=== PATIENT | male | born 1980 | race Two or more races ===

== ENCOUNTER 2024-01-26 20:03 | Inpatient (IN) | payer MEDICAID, SELFPAY ==
--- NOTE | ~2024-01-26 | CT_ITS ---
EXAMINATION: CT HEAD WITHOUT CONTRAST CT CERVICAL SPINE WITHOUT CONTRAST CLINICAL INFORMATION: Fall. COMPARISON: None available. TECHNIQUE: Contiguous axial imaging was performed from the skull base to vertex without intravenous administration of contrast. Contiguous axial imaging was performed from the upper chest through the skull base without intravenous administration of contrast. Coronal and sagittal reformats were obtained at the acquisition workstation. This CT examination was performed using dose optimization techniques as appropriate, variously including the following: *Automated exposure control. *Adjustment of mA and/or kV according to patient size (this includes techniques or standardized protocols for targeted exams where dose is matched to indication/reason for exam; i.e. extremities or head). *Use of iterative reconstruction technique. DLP: 1510 mGy-cm FINDINGS: Head: There is no evidence of acute intracranial hemorrhage or edematous territorial infarction. Martinez-white matter differentiation is preserved. There is no abnormal attenuation within the brain parenchyma. The ventricles are normal in morphology and size. No evidence for obstructive hydrocephalus. No abnormal mass effect or midline shift. No extra-axial fluid collections. Mild subgaleal hematoma along the posterior vertex, measuring up to 0.2 cm in depth. No associated acute osseous abnormalities. The mastoid air cells and visualized paranasal sinuses are clear. Cervical Spine: The atlantooccipital and atlantoaxial articulations remain well aligned. Straightening of the normal cervical lordosis. Otherwise, there is anatomic alignment of the vertebral bodies and posterior elements. No evidence of acute fracture or subluxation. The vertebral body heights are maintained. Moderate degenerative disc disease from C5-C7. Mild degenerative disc disease at all additional levels. Facet and uncovertebral joint arthropathy leads to osseous encroachment on the neural foramina from C5-C7. There is no prevertebral soft tissue swelling. The thyroid gland and remaining cervical soft tissues are within normal limits. The lung apices demonstrate no abnormalities. CT/CT cervical spine wo IV con IMPRESSION: 1. No evidence of acute intracranial hemorrhage or edematous territorial infarction. 2. No evidence of acute fracture or traumatic subluxation of the cervical spine. 3. Small posterior scalp hematoma. No associated osseous abnormalities. Electronically signed by: Jeremias Maldonado DO 01/26/2024 09:49 PM EDT
[2024-01-26 20:16] VITALS: BP 147/82; PULSE 104; RESP 20; TEMP 36.8; O2SAT 98; BMI 41.2
--- NOTE | 2024-01-26 20:20 | ECG_ITS ---
Test Reason : WITHDRAWELS Blood Pressure : / mmHG Vent. Rate : 097 BPM Atrial Rate : 097 BPM P-R Int : 140 ms QRS Dur : 086 ms QT Int : 344 ms P-R-T Axes : 035 047 016 degrees QTc Int : 436 ms Normal sinus rhythm Nonspecific T wave abnormality Abnormal ECG No previous ECGs available Referred By: Nae Booth Electronically Signed By:TASHA REYNOLDS
--- NOTE | 2024-01-26 20:23 | ED.SEIZURE ---
HPI - Seizure General Chief Complaint: Seizure Stated Complaint: ? SEIZURE Time Seen by Provider: 01/27/24 01:13 Source: patient Mode of arrival: ambulatory Limitations: no limitations History of Present Illness ED Provider: Dr. Brown HPI Narrative: According to EMS and the patient he has been going through alcohol withdrawal. He has been recently binging on alcohol. Tonight just before he was to be picked up for detox he had an episode in the bathroom and was found on the floor. According to EMS thought he had seizure. No history of prior withdrawal seizures. Related Data Allergies Allergy/AdvReac Type Severity Reaction Status Date / Time No Known Allergies Allergy Verified 01/26/24 20:22 [No Known Allergies*] Review of Systems Review of Systems: Yes all other systems are reviewed and are negative Neurologic: Denies Sensory deficit (Neuro) [facility] Social History Social History Smoked in Last 30 Days: Yes Use of substances other than those prescribed or required for medical reasons: Yes Substance Use Type: Crack/Cocaine Substance Use Frequency: Monthly Last Used Substance: Days (ago) Any prior treatment program specific to substance use: No Advance Directives: No Advance Directives Information Provided: No Do you have a plan to hurt others: No Plan Physical Exam Vital Signs: Vital Signs: Last Vital Signs Temp 97.8 F 01/27/24 06:18 Pulse 74 01/27/24 06:18 Resp 16 01/27/24 06:18 BP 116/65 01/27/24 06:18 Pulse Ox 98 01/27/24 06:18 O2 Del Method Room Air 01/27/24 06:18 BMI result Body Mass Index 41.2 Const: Other: male with pressured speech, slightly tremulous Nutritional Appearance: average body habitus Orientation/consciousness: oriented to person and patient oriented x3 Limitations: no limitations HEENT: Other: ecchymosis on tongue Head: Yes normal to inspection Ears: external ears normal General nose exam: Normal external nose present Mouth: Normal oral and palatal mucosa present and oropharynx normal Throat: Yes posterior oropharynx normal Eyes: General: appearance normal, both eyes and all related structures Neck: Other: supple Neck: Yes normal visual inspection Chest: Chest palpation & inspection: normal inspection of the chest Resp: Auscultation: clear to auscultation bilaterally Cardio: Jugular venous distension: no JVD Rate: regular rate Rhythm: regular rhythm Heart sounds: S1 normal heart sound present and S2 normal heart sound present GI: Inspection: Yes normal to inspection Palpation (GI): Soft to palpation, nontender and No hepatosplenomegaly present Auscultation: normal bowel sounds : General: Yes no CVA tenderness Back/Spine/Pelvis: Back: no CVA tenderness Skin: General skin exam: no rashes or lesions noted Neuro: General: oriented to person and patient oriented x3 Cranial nerves: Yes CN's II-XII intact bilaterally Motor exam (neuro): 5/5 motor strength present throughout Sensory Exam: No Sensory deficit (Neuro) Extrem: General: Yes normal to inspection Psych: Appearance: grossly normal Course Course Course Narrative: This is a Rapid Medical Examination (RME) performed by Osito Booth PA-C in triage. Full HPI, ROS, assessment and treatment plan per primary provider in the Main ED. 43 yo male hx of etoh abuse here for eval after suspected serizure. Patient reports waiting for detox bed in [place], line driver was on the way to get him. As he was stepping out of the tub, he suddenly felt dizzy, fell to the ground and was noted to have seizure-like activity, unwitnessed. found him next to the tub groggy/sleepy. Patient reports taking a shot of liquor prior to arrival in the ED just to get off of the floor. Last drink prior to this was 2 days ago. Admits to heavy drinking daily since July. Admits to tongue pain. No history of withdrawal seizures. international relations professor aware - pt to be brought back to main ED bed. Plan: Labs EKG, CT, UA, UDS, CIWA Reevaluation(s) Reevaluation #1: I spent 40 minutes of critical care, with interventions, assessments, speaking to patient, consultants, and family. Time: 07:16 Reevaluation #2: patient with withdrawals, rhabdomyolisis, hypokalemia. Currently vitals are stable will have CARE team evaluate for detox Time: 07:19 Medications Administered Generic Name Dose Route Start Last Admin Trade Name Freq PRN Reason Stop Dose Admin Potassium Chloride 10 meq in 100 mls @ 100 mls/hr 01/27/24 05:45 01/27/24 06:12 Potassium Chloride/H20 IV 01/27/24 07:44 100 mls/hr Q1H JACIEL Administration Discontinued Medications Generic Name Dose Route Start Last Admin Trade Name Freq PRN Reason Stop Dose Admin Sodium Chloride 1,000 mls @ 999 mls/hr 01/27/24 01:30 01/27/24 03:44 Ns IVCONT 01/27/24 03:30 Infused .Q1H1M JACIEL Infusion Lorazepam 2 mg 01/26/24 20:28 01/26/24 21:30 Lorazepam 2 Mg/Ml Vial IM 01/26/24 20:29 2 mg ONCE ONE Administration Medical Decision Making Differential Diagnosis Differential Diagnoses: The differential diagnosis associated with the presentation includes (alcohol withdrawal, alcohol withdrawal seizure, rhabdomyolisis, hypokalemia) Admission/Observation Consideration of admission/observation: Escalation of care including admission/observation considered (upon arrival admission was considered) Consult Healthcare Provider Management of the patient was discussed with: Behavioral Health Provider Lab Data 01/26/24 20:32 01/27/24 03:53 Labs: Lab Results 01/26/24 01/27/24 01/27/24 Range/Units 20:32 00:47 03:53 WBC 12.6 H (4.8-10.8) X10*3/uL RBC 5.55 (4.60-5.80) X10*6/uL Hgb 16.7 (14.0-18.0) g/dl Hct 48.2 (42.0-52.0) % MCV 86.8 (80.0-98.0) fL MCH 30.1 (27.0-33.0) pg MCHC 34.6 (31.0-36.0) g/dl RDW 12.2 (11.0-16.0) % Plt Count 343 (160-400) X10*3/uL MPV 10.5 (9.4-12.4) fL Immature Gran % (Auto) 1.0 H (0.0-0.4) % Neut % (Auto) 62.5 (45-73) % Lymph % (Auto) 22.7 (20-40) % [place] % (Auto) 13.1 H (2-11) % Eos % (Auto) 0.1 (0-4) % Baso % (Auto) 0.6 (0-2) % Lymph # (Auto) 2.9 (1.2-4.9) X10*3/uL [place] # (Auto) 1.6 H (0.1-1.2) X10*3/uL Eos # (Auto) 0.0 (0.0-0.4) X10*3/uL Baso # (Auto) 0.1 (0.0-0.2) X10*3/uL Abs Immat Gran (auto) 0.13 H (0.00-0.03) X10*3/uL Absolute Neuts (auto) 7.9 (2.0-8.3) x10*3/uL Absolute Nucleated RBC 0.000 (0.0-0.012) X10*3/uL Nucleated RBC % (auto) 0.0 (0.0-0.2) /100WBC Smear Tech's Comments VERIFIED Sodium 133 L 136 (135-145) mmol/L Potassium 4.2 3.1 L D (3.3-5.1) mmol/L Chloride 101 105 (96-108) mmol/L Carbon Dioxide 20 L 24 (22-29) mmol/L Anion Gap 16 10 L (12-20) BUN 20 H 18 H (9-16) mg/dL Creatinine 1.05 1.06 (0.5-1.4) mg/dL Estim Creat Clear Calc 109.5 108.5 Estimated GFR > 60 > 60 Random Glucose 149 H 139 H (60-115) mg/dL Calcium 9.6 8.4 D (8.4-10.2) mg/dL Magnesium 2.6 (1.6-2.6) mg/dL Total Bilirubin 0.7 (0.0-1.0) mg/dL AST 49 H (5-37) U/L ALT 31 (0-40) U/L Alkaline Phosphatase 92 (39-117) U/L Total Creatine Kinase 1518 H 1240 H (38-174) U/L Total Protein 9.3 H (6.5-8.0) g/dL Albumin 4.9 (3.5-5.0) g/dL Lipase 15 (8-78) U/L Urine Color Yellow Urine Appearance Clear Urine pH 5.5 (5.0-9.0) Ur Specific [place] >= 1.030 H (1.005-1.025) Urine Protein 30 (1+) H (Neg-Trace) mg/dL Urine Glucose (UA) Negative (Negative) mg/dL Urine Ketones 15 (Negative) mg/dL Urine Blood Trace H (Negative) Urine Nitrite Negative (Negative) Ur Leukocyte Esterase Negative (Negative) Urine RBC 0-2 (0-2) /HPF Urine WBC 0-5 (0-5) /HPF Ur Squamous Epith Cells 0-2 (0-2) /HPF Urine Bacteria None Seen (None Seen) Hyaline Casts 3-5 (0-2) /LPF Urine Opiates Screen Not Detected (Not Detect) Ur Buprenorphine Scrn Not Detected (Not Detect) ng/mL Ur Oxycodone Screen Not Detected (Not Detect) ng/mL Urine Methadone Screen Not Detected (Not Detect) ng/mL Urine Fentanyl Screen Not Detected (Not Detect) Ur Barbiturates Screen Not Detected (Not Detect) Ur Phencyclidine Scrn Not Detected (Not Detect) Ur Amphetamines Screen Not Detected (Not Detect) U Benzodiazepines Scrn Not Detected (Not Detect) Urine Cocaine Screen POSITIVE H (Not Detect) U Marijuana (THC) Screen POSITIVE H (Not Detect) Ethyl Alcohol < 10 mg/dL Independent Interpretation I performed an independent interpretation of an: EKG (sinus 97 inferior flipped ts, no other st twave changes) and CT Scan (brain: no bleed or mass) Independent Historian Clinical information obtained from an independent historian. History obtained from or confirmed by: EMS Social Determinants Patient?s care significantly limited by Social Determinants of Health including: Alcoholism and drug addiction in family Discharge Plan Discharge Clinical Impression: Alcoholism, Alcohol withdrawal, Rhabdomyolysis Patient Disposition: Still a Patient Print Language: Paraguayan
--- NOTE | 2024-01-26 20:42 | MHC.EDTECH ---
Patient ekg taken and was read by Provider ,blood drawn and sent to lab .
[2024-01-26 20:57] LABS: Alanine Aminotransferase 31 U/L (0-40); Albumin Level 4.9 g/dL (3.5-5.0); Alkaline Phosphatase 92 U/L (39-117); Anion Gap 16 (12-20); Aspartate Amino Transferase 49 U/L (5-37); Bilirubin Total 0.7 mg/dL (0.0-1.0); Blood Urea Nitrogen 20 mg/dL (9-16); Calcium 9.6 mg/dL (8.4-10.2); Carbon Dioxide 20 mmol/L (22-29); Chloride 101 mmol/L (96-108); Creatinine Clr Calc Pharmacy 109.5; Estimated Glomerular Filt Rate > 60; Ethanol < 10 mg/dL; Glucose Random 149 mg/dL (60-115); Lipase 15 U/L (8-78); Magnesium 2.6 mg/dL (1.6-2.6); Potassium 4.2 mmol/L (3.3-5.1); Sodium 133 mmol/L (135-145); Total Protein 9.3 g/dL (6.5-8.0)
[2024-01-26 21:00] LABS: Basophils Absolute Auto 0.1 X10*3/uL (0.0-0.2); Basophils Percent Auto 0.6 % (0-2); Eosinophils Percent Auto 0.1 % (0-4); Hematocrit 48.2 % (42.0-52.0); Hemoglobin 16.7 g/dl (14.0-18.0); Imm Gran Abs Auto 0.13 X10*3/uL (0.00-0.03); Lymphocytes Absolute Auto 2.9 X10*3/uL (1.2-4.9); Lymphocytes Percent Auto 22.7 % (20-40); MANUAL DIFF FLAG SCAN; Mean Corpuscular HGB Conc 34.6 g/dl (31.0-36.0); Mean Corpuscular Hemoglobin 30.1 pg (27.0-33.0); Mean Corpuscular Volume 86.8 fL (80.0-98.0); Mean Platelet Volume 10.5 fL (9.4-12.4); Monocytes Absolute Auto 1.6 X10*3/uL (0.1-1.2); Monocytes Percent Auto 13.1 % (2-11); Neutrophils Absolute Auto 7.9 x10*3/uL (2.0-8.3); Neutrophils Percent Auto 62.5 % (45-73); Platelet Count 343 X10*3/uL (160-400); Red Blood Count 5.55 X10*6/uL (4.60-5.80); Red Cell Distribution Width 12.2 % (11.0-16.0); SCAN SMEAR FLAG 1; White Blood Count 12.6 X10*3/uL (4.8-10.8)
[2024-01-26] MEDS: LORazepam 2 MG/ML VIAL IM (21:30)
[2024-01-26 22:26] LABS: SLIDE REVIEW VERIFIED
[2024-01-27] VITALS (10 sets, daily range): BP systolic 101–137; BP diastolic 57–79; PULSE 74–93; RESP 16–20; TEMP 36.6–37; O2SAT 93–99; BMI 41.0
[2024-01-27 00:52] LABS: Appearance Urine Clear; Color Urine Yellow; Glucose Urine UA Negative (Negative); Leukocyte Esterase Urine Negative (Negative); Nitrite Urine Negative (Negative); PH 5.5 (5.0-9.0); Specific Gravity - Urine >= 1.030 (1.005-1.025); UMIC TRIGGER UACC YES; Urine Blood Trace (Negative); Urine Ketones 15 mg/dL (Negative); Urine Protein 30 (1+) mg/dL (Neg-Trace)
[2024-01-27 00:55] LABS: Bacteria Urine None Seen (None Seen); RBC Urine 0-2 /HPF (0-2); Squamous Epithelial Cell Urine 0-2 /HPF (0-2); WBC Urine 0-5 /HPF (0-5)
[2024-01-27 01:06] LABS: Amphetamine Screen Urine Not Detected (Not Detect); Barbiturates, Urine Not Detected (Not Detect); Benzodiazepines Screen Urine Not Detected (Not Detect); Buprenorphine Scr Not Detected (Not Detect); Cannabinoid Screen Urine POSITIVE (Not Detect); Cocaine Screen Urine POSITIVE (Not Detect); Fentanyl, urine Not Detected (Not Detect); Methadone Screen, Urine Not Detected (Not Detect); Opiate Screen Urine Not Detected (Not Detect); Oxycodone Screen Urine Not Detected (Not Detect); Phencyclidine Screen Urine Not Detected (Not Detect)
--- NOTE | 2024-01-27 01:37 | MHC.EDTECH ---
This pct assumed care of patient at 0130 am ,vitals taken ,call johnson within pt reach ,,no apparent distress noted ,Plan of care continue .
--- NOTE | 2024-01-27 01:40 | MHC.EDTECH ---
Patient was given sandwiches and gingerale for snack .
[2024-01-27] MEDS: 0.9 % Sodium Chloride 1,000 ML 999 ML IVCONT ×2 (02:18→03:06)
--- NOTE | 2024-01-27 02:34 | MHC.EDTECH ---
Provider aware unable to get labs at this time because ,iv fluids are not finished .
--- NOTE | 2024-01-27 03:54 | MHC.EDTECH ---
0400 rounding done ,Patient sleep ,vitals taken ,repeated cpk and bmp drawn and sent to lab .
[2024-01-27 04:25] LABS: Anion Gap 10 (12-20); Blood Urea Nitrogen 18 mg/dL (9-16); Calcium 8.4 mg/dL (8.4-10.2); Carbon Dioxide 24 mmol/L (22-29); Chloride 105 mmol/L (96-108); Creatinine Clr Calc Pharmacy 108.5; Estimated Glomerular Filt Rate > 60; Glucose Random 139 mg/dL (60-115); Potassium 3.1 mmol/L (3.3-5.1); Sodium 136 mmol/L (135-145)
[2024-01-27] MEDS: Potassium Chloride/H20 10 MEQ/100 ML PIGGYBACK 100 MEQ IV ×2 (06:12→07:41)
--- NOTE | 2024-01-27 06:14 | PC.NURSE ---
resting quietly, resp with ease, no s/s of acute distress
--- NOTE | 2024-01-27 06:20 | PC.NURSE ---
report given to Merari HENDRICKSON
--- NOTE | 2024-01-27 06:57 | PC.NURSE ---
report given to Merari HENDRICKSON
--- NOTE | 2024-01-27 07:45 | PC.NURSE ---
Care of Pt assumed at change of shift. Pt is noted to be resting comfortably with eye closed, snoring. VSS, NAD noted. Breaths are slow even and unlabored. CIWA to be completed with Pt is awake for accurate scoring. Potassium bag #2 initiated per JUL.
--- NOTE | 2024-01-27 09:03 | MHC.RECOVRN ---
Met with pt in ED12. Pt AOx4, cooperative with 1:1 discussion, presented as anxious, restless with mild tremors. Pt endorses nausea and headache. Pt reported daily alcohol use the last 6 months - drinking about 4-5 drinks daily and up to a pint of dewars and other hard liquor. Last drink was yesterday morning. Pt also endorses occasional cocaine use $50-$100 worth. Pt reported that prior to 6 months he did not have an issue with alcohol and would drink on special occasions only. Pt reported he was on his way to detox yesterday, waiting on friend to pick him up when he had a seizure and was brought to the hospital. Pt has never been to treatment before but was planning on going to a [facility] detox yesterday. Referrals to be sent as pt remains treatment seeking and wants detox.
--- NOTE | 2024-01-27 09:58 | MHC.RECOVRN ---
[facility] in [place] was called as pt was supposed to go there yesterday for detox. [facility] no longer has a male bed for pt but will put on waiting list. Performed CIWA scale on pt and he scored 23 - RN and MD made aware. Pt will be initiated on phenobarb per Dr. Saravia.
--- NOTE | 2024-01-27 10:24 | MHC.RECOVRN ---
ATS referral sent to [facility] for review.
[2024-01-27] MEDS: PHENobarbitaL sodium 130 MG/ML IM ONCE 300 MG IM (10:31)
--- NOTE | 2024-01-27 11:13 | PHA.MEDREC ---
Addendum entered by Aidan Ruggiero RPh 01/27/24 14:13: checked by [facility] Original Note: Pharmacy Consult ? Medication Reconciliation Pharmacy has completed the medication reconciliation.
--- NOTE | 2024-01-27 11:46 | MHC.EDTECH ---
CALL RECEIVED FROM [facility]/[phone]...K[facility]ACE UNABLE TO TAKE THIS PT
--- NOTE | 2024-01-27 12:12 | PM.IMHP ---
History of Present Illness Date of Service: 01/27/24 Chief Complaint: Alcohol withdrawal seizure 43-year-old gentleman with no significant past medical history was brought in to [facility] after suspected seizure, as per patient he has been drinking every day since July mostly beer , stop drinking 2 days ago, was waiting for detox bed in [place], driver education road instructor was on the way to get him, he came out of shower was pulling up his pants, felt dizzy and fell to the ground ,he remembers this happened around 3:30 in the afternoon ,later ex-girlfriend came up to check on him several hours later but found him on the floor shaking, he complained of tongue pain, in the emergency room had no further seizure episodes but noted to have elevated CIWA up to 21 treated with phenobarb protocol and now being admitted to [facility] for alcohol withdrawal seizures, patient admits to snorting cocaine few times a week, denies IV drug use, denies prior history of alcohol withdrawal seizures is motivated to undergo detox. Review of Systems Review of Systems: General no headache, no dizziness, no fever chills. CVS no chest pain, no palpitation. Respiratory no cough, no sob Gastrointestinal no nausea no vomiting, no abdominal pain Skin no rash Musculoskeletal no pain All other system reviewed and are negative PMFSH Social History Household Members: None Housing: Apartment Patient Tobacco Use Status: Current everyday Tobacco user Tobacco use type: Cigarette Smoked in Last 30 Days: Yes Patient Interested in Nicotine Replacement: No Use of substances other than those prescribed or required for medical reasons: Yes Substance Use Type: Crack/Cocaine and Marijuana Substance Use Frequency: Weekly Last Used Substance: Days (ago) Currently Displaying Signs/Symptoms of Drug Intoxication Withdrawal: No Any prior treatment program specific to substance use: No Have you been hit, kicked, punched, or otherwise hurt by someone within the past year? If so, by whom?: No Do you feel safe in your current relationship?: No Current Relationship Is there a partner from a previous relationship who is making you feel unsafe now?: No Are you made to feel afraid or neglected: No Advance Directives: No Advance Directives Information Provided: No Do you have a plan to hurt others: No Plan Recently lost weight without trying: No Eating poorly because of decreased appetite: No Nutrition Risks: No Nutritional Risk Poor oral hygiene: No Meds Allergies Allergy/AdvReac Type Severity Reaction Status Date / Time No Known Allergies Allergy Verified 01/26/24 20:22 [No Known Allergies*] Active Medications: Current Medications Acetaminophen (Acetaminophen 325 Mg Tablet) 650 mg PO Q6H PRN PRN Reason: Pain, Mild (Pain Scale 1-3), fever or headache Calcium Carbonate (Calcium Carbonate 750 Mg Tab.Chew) 750 mg PO Q4H PRN PRN Reason: Heartburn Folic Acid (Folic Acid 1 Mg Tablet) 1 mg PO DAILY JACIEL Potassium Cl/Dextrose/Lact Ringer's (Kcl 20 Meq In 5 % Dex/Lact Rin) 20 meq in 1,000 mls @ 100 mls/hr IVCONT .Q10H JACIEL Magnesium Hydroxide (Milk Of Magnesia 30 Ml Oral.Susp) 30 ml PO DAILY PRN PRN Reason: Constipation Melatonin (Melatonin 3 Mg Tablet) 6 mg PO BEDTIME PRN PRN Reason: Insomnia Ondansetron HCl (Ondansetron Hcl 4 Mg/2 Ml Vial) 4 mg IVPUSH Q8H PRN PRN Reason: Nausea and Vomiting Pharmacy Consult (Consult Rx Etoh Phenob Im/Po) 1 each MISCELLANE ONCE PRN; Protocol PRN Reason: Consult order Phenobarbital (Phenobarbital 15 Mg Tablet) 45 mg PO BID JACIEL; Protocol Stop: 01/29/24 09:01 Phenobarbital (Phenobarbital 30 Mg Tablet) 30 mg PO BID JACIEL; Protocol Stop: 01/31/24 09:01 Phenobarbital (Phenobarbital 30 Mg Tablet) 30 mg PO DAILY JACIEL; Protocol Stop: 02/02/24 09:01 Phenobarbital Sodium (Phenobarbital Sodium 130 Mg/Ml Vial Im Q3hx2) 230 mg IM Q3H JACIEL; Protocol Stop: 01/27/24 16:31 Sodium Chloride (0.9 % Sodium Chloride Flush 3 Ml Syringe) 3 ml IVFLUSH QSHIFT JACIEL Thiamine HCl (Thiamine Hcl 100 Mg Tablet) 100 mg PO DAILY [facility] Home Medications ?Medication ?Instructions ?Recorded ?Confirmed ?Last Taken ?Type ibuprofen 200 mg tablet 400 mg PO Q8H PRN Pain 01/27/24 01/27/24 Unknown History Physical Exam Vital Signs and Narrative: Vital Signs: Last Vital Signs Temp 98.4 F 01/27/24 10:30 Pulse 93 01/27/24 10:30 Resp 20 01/27/24 10:30 BP 101/64 01/27/24 10:30 Pulse Ox 93 01/27/24 10:30 O2 Del Method Room Air 01/27/24 10:30 BMI result Body Mass Index 41.2 Const: Other: General awake alert x3 in no acute distress. tongue rt side lateral laceration Neck is supple no JVD. CVS regular rate rhythm, Respiratory lungs clear to auscultation, no respiratory distress Gastrointestinal abdomen soft, non tender, bowel sounds audible Extremities no clubbing cyanosis or edema. Neuro moving all 4 extremity, speech clear. Skin no rash Psych anxious Results Labs 01/26/24 20:32 01/27/24 03:53 Labs: Laboratory Results - last 24 hr 01/26/24 01/27/24 01/27/24 20:32 00:47 03:53 MCV 86.8 MCH 30.1 MCHC 34.6 RDW 12.2 Plt Count 343 MPV 10.5 Immature Gran % (Auto) 1.0 H Neut % (Auto) 62.5 Lymph % (Auto) 22.7 [place] % (Auto) 13.1 H Eos % (Auto) 0.1 Baso % (Auto) 0.6 Lymph # (Auto) 2.9 [place] # (Auto) 1.6 H Eos # (Auto) 0.0 Baso # (Auto) 0.1 Abs Immat Gran (auto) 0.13 H Absolute Neuts (auto) 7.9 Absolute Nucleated RBC 0.000 Nucleated RBC % (auto) 0.0 Smear Tech's Comments VERIFIED Anion Gap 16 10 L Estim Creat Clear Calc 109.5 108.5 Estimated GFR > 60 > 60 Random Glucose 149 H 139 H Calcium 9.6 8.4 D Magnesium 2.6 Total Bilirubin 0.7 AST 49 H ALT 31 Alkaline Phosphatase 92 Total Creatine Kinase 1518 H 1240 H Total Protein 9.3 H Albumin 4.9 Lipase 15 Urine Color Yellow Urine Appearance Clear Urine pH 5.5 Ur Specific [place] >= 1.030 H Urine Protein 30 (1+) H Urine Glucose (UA) Negative Urine Ketones 15 Urine Blood Trace H Urine Nitrite Negative Ur Leukocyte Esterase Negative Urine RBC 0-2 Urine WBC 0-5 Ur Squamous Epith Cells 0-2 Urine Bacteria None Seen Hyaline Casts 3-5 Urine Opiates Screen Not Detected Ur Buprenorphine Scrn Not Detected Ur Oxycodone Screen Not Detected Urine Methadone Screen Not Detected Urine Fentanyl Screen Not Detected Ur Barbiturates Screen Not Detected Ur Phencyclidine Scrn Not Detected Ur Amphetamines Screen Not Detected U Benzodiazepines Scrn Not Detected Urine Cocaine Screen POSITIVE H U Marijuana (THC) Screen POSITIVE H Ethyl Alcohol < 10 Imaging Radiologist's Impressions: Impressions Head CT 01/26/24 20:26 IMPRESSION: 1. No evidence of acute intracranial hemorrhage or edematous territorial infarction. 2. No evidence of acute fracture or traumatic subluxation of the cervical spine. 3. Small posterior scalp hematoma. No associated osseous abnormalities. Electronically signed by: Jeremias Maldonado DO 01/26/2024 09:49 PM EDT RP Cervical Spine CT 01/26/24 21:00 IMPRESSION: 1. No evidence of acute intracranial hemorrhage or edematous territorial infarction. 2. No evidence of acute fracture or traumatic subluxation of the cervical spine. 3. Small posterior scalp hematoma. No associated osseous abnormalities. Electronically signed by: Jeremias Maldonado DO 01/26/2024 09:49 PM EDT RP Assessment and Plan (1) Rhabdomyolysis: Status: Acute (2) Alcohol withdrawal: Status: Acute (3) Alcoholism: Status: Acute (4) Hypokalemia: Status: Acute Plan 43-year-old gentleman with no significant past medical history presented to [facility] after an alcohol withdrawal seizure witnessed by ex-girlfriend. Alcohol withdrawal/with seizure Admit to telemetry/seizure precautions Phenobarb protocol Thiamine/folic acid Addiction consult Monitor CIWA/as needed Ativan for elevated CIWA Mild rhabdomyolysis likely due to seizure, IV fluids follow labs Acute Hypokalemia will replete and follow. Morbid obesity will recommend low-calorie diet. Compression boots. Full code In my clinical judgment patient will require 2 night inpatient hospitalization for management of alcohol withdrawal seizure, hypokalemia, mild rhabdomyolysis and expert consultation. Quality Stroke Does the patient have a stroke diagnosis?: No VTE Prior VTE?: No VTE Risk Level:: Medical - moderate - high VTE Device Contraindication: N/A - Device Ordered VTE Drug Contraindication: Treatment Not Indicated
--- NOTE | 2024-01-27 13:15 | MHC.RECOVRN ---
Spoke with staff from [facility] who said pt needs to stabilize more and finish his phenobarb protocol before considering detox with them. Pt is to transfer to the medical 4th floor to complete his detox there.
[2024-01-27] MEDS: PHENobarbitaL sodium 130 MG/ML VIAL IM Q3Hx2 230 MG IM ×2 (13:18→15:54)
[2024-01-27] MEDS: Folic Acid 1 MG TABLET PO (13:19)
[2024-01-27] MEDS: Thiamine HCL 100 MG TABLET PO (13:19)
[2024-01-27] MEDS: KCl 20 mEq in 5 % Dex/Lact Rin 20 MEQ/1,000 ML IV.SOLN 100 MEQ IVCONT ×2 (14:05→21:34)
[2024-01-27] MEDS: PHENobarbitaL 15 MG TABLET 45 MG PO (21:33)
[2024-01-28] MEDS: LORazepam 2 MG/ML VIAL IVPUSH ×2 (00:05→16:31)
[2024-01-28] MEDS: ondansetron HCL 4 MG/2 ML VIAL IVPUSH (00:05)
[2024-01-28 04:00] VITALS: BP 117/67; PULSE 65; RESP 16; TEMP 36.4; O2SAT 97
[2024-01-28 06:08] LABS: Hematocrit 41.6 % (42.0-52.0); Hemoglobin 13.8 g/dl (14.0-18.0); Mean Corpuscular HGB Conc 33.2 g/dl (31.0-36.0); Mean Corpuscular Hemoglobin 30.3 pg (27.0-33.0); Mean Corpuscular Volume 91.2 fL (80.0-98.0); Mean Platelet Volume 10.2 fL (9.4-12.4); Platelet Count 286 X10*3/uL (160-400); Red Blood Count 4.56 X10*6/uL (4.60-5.80); Red Cell Distribution Width 12.5 % (11.0-16.0); White Blood Count 8.4 X10*3/uL (4.8-10.8)
[2024-01-28] MEDS: KCl 20 mEq in 5 % Dex/Lact Rin 20 MEQ/1,000 ML IV.SOLN 100 MEQ IVCONT (06:27)
[2024-01-28 06:30] LABS: Anion Gap 10 (12-20); Blood Urea Nitrogen 9 mg/dL (9-16); Calcium 8.6 mg/dL (8.4-10.2); Carbon Dioxide 24 mmol/L (22-29); Chloride 109 mmol/L (96-108); Creatinine Clr Calc Pharmacy 136.6; Estimated Glomerular Filt Rate > 60; Glucose Random 95 mg/dL (60-115); Magnesium 2.2 mg/dL (1.6-2.6); Potassium 3.8 mmol/L (3.3-5.1); Sodium 139 mmol/L (135-145)
[2024-01-28 07:07] VITALS: BP 119/70; PULSE 70; RESP 18; TEMP 36.4; O2SAT 98
[2024-01-28] MEDS: Folic Acid 1 MG TABLET PO (07:53)
[2024-01-28] MEDS: PHENobarbitaL 15 MG TABLET 45 MG PO ×2 (07:53→20:57)
[2024-01-28] MEDS: Thiamine HCL 100 MG TABLET PO (07:53)
--- NOTE | 2024-01-28 10:56 | MHC.RECOVRN ---
Met with pt in 450-1 after consultation placed to Addiction Medicine for ETOH/CUD? Chart review completed and received report from floor nurse Dory. Pt had presented to the ED for an unwitnessed fall with LOC R/T W/D from ETOH.? Pt was admitted to the floor for management of alcohol withdrawal seizure, hypokalemia, mild rhabdomyolysis and expert consultation. ? Pt currently receiving Phenobarbital taper. Upon assessment pt is lying in bed awake and alert.? Pt scored an 8 on the CIWA this AM for moderate tremors, sweating, anxiety, Auditory Disturbances and H/A.? Pt has comfort meds available and during my visit with him he was able to easily relax. Per previous assessment by glass breaker, and information gathered from pt, he has been using alcohol heavily for the last 6 months since losing his job;? following legal issues. He has been drinking daily and prior to starting to cut down on his own was drinking 4-5 drinks daily up to a pint of dewars and other hard liquor.? Last drink was 01/25 AM.? Pt also is reporting occasional use of cocaine intranasal route.?? ? Pt is interested detox and F/U inpt treatment.? He feels he can not stop with outpatient treatment and needs to be in a structured environment in the beginning.? He does have a court date on Feb 04 that he is concerned about.? He is also interested in [facility].??? T/W provided pt with resources for the CCC, [facility] and TSS/CSS programs.? Pt currently has support through [facility] including recovery coaching, therapy and substance use classes.??? Report provided to floor nurse Dory along with ACS team. ACS team available for follow up as needed.
--- NOTE | 2024-01-28 11:10 | HO.PM.IMPN ---
Subjective Subjective Date of Service: 01/28/24 Interval History: Being followed for alcohol withdrawal Complaining of persistent withdrawal symptoms, shaking, headache, nausea, tolerating diet no fevers, no chills ,no shortness of breath, no chest pain, no other acute events overnight. Review of Systems All other system reviewed and are negative Physical Exam Vital Signs: Vital Signs: Last Vital Signs Temp 97.6 F 01/28/24 07:07 Pulse 70 01/28/24 07:07 Resp 18 01/28/24 07:07 BP 119/70 01/28/24 07:07 Pulse Ox 98 01/28/24 07:07 O2 Del Method Room Air 01/28/24 07:07 BMI result Body Mass Index 41.0 Const: Other: General awake alert x3 in no acute distress. tongue rt side lateral laceration healing Neck supple no JVD. CVS regular rate rhythm, Respiratory lungs clear to auscultation, no respiratory distress Gastrointestinal abdomen soft, non tender, bowel sounds audible Extremities no edema. Neuro pressured speech Skin no rash Psych anxious Objective Data Active Medications Acetaminophen (Acetaminophen 325 Mg Tablet) 650 mg PO Q6H PRN PRN Reason: Pain, Mild (Pain Scale 1-3), fever or headache Calcium Carbonate (Calcium Carbonate 750 Mg Tab.Chew) 750 mg PO Q4H PRN PRN Reason: Heartburn Folic Acid (Folic Acid 1 Mg Tablet) 1 mg PO DAILY [facility] Last Admin: 01/28/24 07:53 Dose: 1 mg Documented By: EMERY Potassium Cl/Dextrose/Lact Ringer's (Kcl 20 Meq In 5 % Dex/Lact Rin) 20 meq in 1,000 mls @ 100 mls/hr IVCONT .Q10H [facility] Last Admin: 01/28/24 06:27 Dose: 100 mls/hr Documented By: ANTONIO Lorazepam (Lorazepam 2 Mg/Ml Vial) 2 mg IVPUSH Q6H PRN PRN Reason: ciwa >12 Last Admin: 01/28/24 00:05 Dose: 2 mg Documented By: ANTONIO Magnesium Hydroxide (Milk Of Magnesia 30 Ml Oral.Susp) 30 ml PO DAILY PRN PRN Reason: Constipation Melatonin (Melatonin 3 Mg Tablet) 6 mg PO BEDTIME PRN PRN Reason: Insomnia Ondansetron HCl (Ondansetron Hcl 4 Mg/2 Ml Vial) 4 mg IVPUSH Q8H PRN PRN Reason: Nausea and Vomiting Last Admin: 01/28/24 00:05 Dose: 4 mg Documented By: ANTONIO Pharmacy Consult (Consult Rx Etoh Phenob Im/Po) 1 each MISCELLANE ONCE PRN; Protocol PRN Reason: Consult order Phenobarbital (Phenobarbital 15 Mg Tablet) 45 mg PO BID [facility]; Protocol Stop: 01/29/24 09:01 Last Admin: 01/28/24 07:53 Dose: 45 mg Documented By: EMERY Phenobarbital (Phenobarbital 30 Mg Tablet) 30 mg PO BID [facility]; Protocol Stop: 01/31/24 09:01 Phenobarbital (Phenobarbital 30 Mg Tablet) 30 mg PO DAILY [facility]; Protocol Stop: 02/02/24 09:01 Sodium Chloride (0.9 % Sodium Chloride Flush 3 Ml Syringe) 3 ml IVFLUSH QSHIFT [facility] Last Admin: 01/28/24 07:53 Dose: Not Given Documented By: EMERY Non-Admin Reason: IV Running Thiamine HCl (Thiamine Hcl 100 Mg Tablet) 100 mg PO DAILY [facility] Last Admin: 01/28/24 07:53 Dose: 100 mg Documented By: EMERY Labs 01/28/24 05:30 01/28/24 05:30 Labs: Laboratory Results - last 24 hr 01/28/24 05:30 MCV 91.2 MCH 30.3 MCHC 33.2 RDW 12.5 Plt Count 286 MPV 10.2 Absolute Nucleated RBC 0.000 Nucleated RBC % (auto) 0.0 Anion Gap 10 L Estim Creat Clear Calc 136.6 Estimated GFR > 60 Random Glucose 95 Calcium 8.6 Magnesium 2.2 Total Creatine Kinase 1039 H Assessment and Plan (1) Hypokalemia: Status: Acute (2) Rhabdomyolysis: Status: Acute (3) Alcohol withdrawal: Status: Acute (4) Alcoholism: Status: Acute Plan 43-year-old gentleman with no significant past medical history presented to [facility] after an alcohol withdrawal seizure witnessed by ex-girlfriend. Alcohol withdrawal/with seizure. No recurrent seizures since admission/persistent Wd sxs Continue Phenobarb protocol cont. Thiamine/folic acid Normal magnesium Addiction consult CIWA 8/as needed Ativan for elevated CIWA Mild drop in hematocrit likely dilutional. Mild Leukocytosis likely reactive, wbc normalized. Mild rhabdomyolysis likely due to seizure, CPK improved [id number]. dc IV fluids , encourage by mouth fluids Acute Hypokalemia repleted and normalized. Morbid obesity recommended low-calorie diet. Compression boots. Full code In my clinical judgment patient will require continued inpatient hospitalization for management of alcohol withdrawal seizure, hypokalemia, mild rhabdomyolysis and expert consultation. Quality Stroke Does the patient have a stroke diagnosis?: No VTE Prior VTE?: No VTE Risk Level:: Medical - moderate - high VTE Device Contraindication: N/A - Device Ordered VTE Drug Contraindication: Treatment Not Indicated
--- NOTE | 2024-01-28 14:46 | MHC.CM.PN ---
PT REPORTS HE LIVES ALONE AND IS INDEPENDENT WITH CARE HE HAS NO DME OR SERVICES HE HAS NO PCP, HE ASKS FOR A NEW PT APPT SOMEWHERE IN [place] PT REPORTS HE IS NOT INTERESTED IN DOING A HCP AT THIS TIME PT SAYS HE IS INTERESTED IN GOING TO SA TREATMENT FROM HERE HE SAYS HE WILL SPEAK TO RECOVERY TEAM, AND THINKS HE HAS ALREADY MET WITH THEM ONCE DCP: HOME VS TREATMENT VIA PRIVATE TRANSPORT
[2024-01-28 16:00] VITALS: BP 117/74; PULSE 72; RESP 18; TEMP 37.4; O2SAT 99
[2024-01-28] MEDS: 0.9 % Sodium Chloride Flush 3 ML SYRINGE IVFLUSH (16:29)
[2024-01-28 19:25] VITALS: BP 145/79; PULSE 84; RESP 17; TEMP 36.6; O2SAT 97
[2024-01-28] MEDS: Acetaminophen 325 MG TABLET 650 MG PO (20:57)
[2024-01-28] MEDS: Melatonin 3 MG TABLET 6 MG PO (22:18)
[2024-01-29 03:06] VITALS: BP 114/70; PULSE 72; RESP 17; TEMP 36.1; O2SAT 95
[2024-01-29 07:21] VITALS: BP 130/69; PULSE 65; RESP 30; TEMP 36.3; O2SAT 99
[2024-01-29] MEDS: Thiamine HCL 100 MG TABLET PO (08:10)
[2024-01-29] MEDS: Folic Acid 1 MG TABLET PO (08:10)
[2024-01-29] MEDS: PHENobarbitaL 15 MG TABLET 45 MG PO (08:10)
[2024-01-29] MEDS: 0.9 % Sodium Chloride Flush 3 ML SYRINGE IVFLUSH ×4 (08:11→21:09)
--- NOTE | 2024-01-29 10:18 | MHC.CM.PN ---
Per ROUNDS discussion, Patient is not yet medically cleared for dc (still on Phenobarbital);Goal is Substance Abuse Program and CM will continue to follow.
--- NOTE | 2024-01-29 13:15 | MHC.RECOVRN ---
AUDIT-C Brief Intervention Pt had positive screen for unhealthy alcohol use on admission, subsequently met with t/w to discuss alcohol use and recovery supports/options. Pt voices concern regarding alcohol use and is aware that drinking at unhealthy levels is known to increase risk of alcohol related health problems. Pt reports varying amounts of alcohol, most of the time up to a 1/2 gallon of liquor. Reports he drinks bloody denise's, gin and tonic, and IPAs. Pt expresses how alcohol use has impacted health, including negative impact on overall physical wellbeing including recent withdrawal seizure. Discussed risk reduction strategies including drinking below the recommended limit. Provided pt with written resources including information on inpatient and outpatient treatment, [facility], harm reduction, and recovery coaching. Pt plans to continue working with [facility] to secure residential placement. Pt provided with t/w contact information if questions or concerns arise. Denies other questions or concerns at this time.
--- NOTE | 2024-01-29 14:12 | HO.PM.IMPN ---
Subjective Subjective Date of Service: 01/29/24 Interval History: no tremor; c/o nausea + malaise; committed to sobriety Review of Systems Review of Systems: Yes all other systems are reviewed and are negative Physical Exam Vital Signs: Vital Signs: Last Vital Signs Temp 97.3 F 01/29/24 07:21 Pulse 65 01/29/24 07:21 Resp 30 H 01/29/24 07:21 BP 130/69 01/29/24 07:21 Pulse Ox 99 01/29/24 07:21 O2 Del Method Room Air 01/29/24 07:21 BMI result Body Mass Index 41.0 Gen: in no acute distress HEENT: sclera anicteric, moist mucus membranes, healing tongue laceration Neck: supple Lungs: clear to auscultation bilaterally Heart: regular rate and rhythm, no murmurs Abd: soft, non-tender, non-distended, obese Ext: no edema Skin: warm/well-perfused Neuro: alert and oriented x3, no focal findings Psych: appropriate affect Objective Data Active Medications Acetaminophen (Acetaminophen 325 Mg Tablet) 650 mg PO Q6H PRN PRN Reason: Pain, Mild (Pain Scale 1-3), fever or headache Last Admin: 01/28/24 20:57 Dose: 650 mg Documented By: YEHUDA Calcium Carbonate (Calcium Carbonate 750 Mg Tab.Chew) 750 mg PO Q4H PRN PRN Reason: Heartburn Folic Acid (Folic Acid 1 Mg Tablet) 1 mg PO DAILY [facility] Last Admin: 01/29/24 08:10 Dose: 1 mg Documented By: EMERY Lorazepam (Lorazepam 2 Mg/Ml Vial) 2 mg IVPUSH Q6H PRN PRN Reason: ciwa >12 Last Admin: 01/28/24 16:31 Dose: 2 mg Documented By: EMERY Magnesium Hydroxide (Milk Of Magnesia 30 Ml Oral.Susp) 30 ml PO DAILY PRN PRN Reason: Constipation Melatonin (Melatonin 3 Mg Tablet) 6 mg PO BEDTIME PRN PRN Reason: Insomnia Last Admin: 01/28/24 22:18 Dose: 6 mg Documented By: YEHUDA Ondansetron HCl (Ondansetron Hcl 4 Mg/2 Ml Vial) 4 mg IVPUSH Q8H PRN PRN Reason: Nausea and Vomiting Last Admin: 01/28/24 00:05 Dose: 4 mg Documented By: ANTONIO Pharmacy Consult (Consult Rx Etoh Phenob Im/Po) 1 each MISCELLANE ONCE PRN; Protocol PRN Reason: Consult order Phenobarbital (Phenobarbital 30 Mg Tablet) 30 mg PO BID [facility]; Protocol Stop: 01/31/24 09:01 Phenobarbital (Phenobarbital 30 Mg Tablet) 30 mg PO DAILY [facility]; Protocol Stop: 02/02/24 09:01 Sodium Chloride (0.9 % Sodium Chloride Flush 3 Ml Syringe) 3 ml IVFLUSH QSHIFT [facility] Last Admin: 01/29/24 08:11 Dose: 3 ml Documented By: EMERY Thiamine HCl (Thiamine Hcl 100 Mg Tablet) 100 mg PO DAILY [facility] Last Admin: 01/29/24 08:10 Dose: 100 mg Documented By: EMERY Labs 01/28/24 05:30 01/28/24 05:30 Assessment and Plan (1) Hypokalemia: Status: Acute (2) Rhabdomyolysis: Status: Acute (3) Alcohol withdrawal: Status: Acute (4) Alcoholism: Status: Acute Plan d3 43yo M admitted after witnessed EtOH withdrawal sz EtOH withdrawal sz - continue phenobarbital taper, continue thiamine/folic acid, Addiction Medicine consultation requested, possibly discharge to detox program mild rhabdomyolysis due to seizure - improved with IV fluids hypoK - repleted morbid obesity - diet/exercise counseling VTE ppx - enoxaparin dispo - detox program In my clinical judgment, the patient requires continued inpatient hospitalization for the following reasons: inpt phenobarbital taper Total time managing care of this patient today: 35 minutes. Quality Stroke Does the patient have a stroke diagnosis?: No VTE Prior VTE?: No VTE Risk Level:: Medical - moderate - high VTE Device Contraindication: N/A - Device Ordered VTE Drug Contraindication: Treatment Not Indicated
[2024-01-29 15:31] VITALS: BP 128/75; PULSE 80; RESP 19; TEMP 36.8; O2SAT 97
--- NOTE | 2024-01-29 15:43 | MHC.RECOVRN ---
Pt had reported interest in [facility]. Referral sent to [facility].
[2024-01-29 19:49] VITALS: BP 142/72; PULSE 92; RESP 17; TEMP 36.6; O2SAT 98
[2024-01-29] MEDS: Acetaminophen 325 MG TABLET 650 MG PO (21:07)
[2024-01-29] MEDS: PHENobarbitaL 30 MG TABLET PO (21:08)
[2024-01-29] MEDS: Melatonin 3 MG TABLET 6 MG PO (21:08)
[2024-01-29 23:45] VITALS: BP 124/64; PULSE 85; RESP 17; TEMP 36.8; O2SAT 98
[2024-01-30 03:11] VITALS: BP 110/69; PULSE 71; RESP 16; TEMP 36.6; O2SAT 98
[2024-01-30] MEDS: Calcium Carbonate 750 MG TAB.CHEW PO ×2 (03:18→19:53)
[2024-01-30 06:21] LABS: Hematocrit 41.9 % (42.0-52.0); Hemoglobin 14.3 g/dl (14.0-18.0); Mean Corpuscular HGB Conc 34.1 g/dl (31.0-36.0); Mean Corpuscular Hemoglobin 30.8 pg (27.0-33.0); Mean Corpuscular Volume 90.1 fL (80.0-98.0); Platelet Count 288 X10*3/uL (160-400); Red Blood Count 4.65 X10*6/uL (4.60-5.80); Red Cell Distribution Width 12.2 % (11.0-16.0); White Blood Count 8.8 X10*3/uL (4.8-10.8)
[2024-01-30 07:02] LABS: Alanine Aminotransferase 21 U/L (0-40); Albumin Level 3.7 g/dL (3.5-5.0); Alkaline Phosphatase 83 U/L (39-117); Anion Gap 9 (12-20); Aspartate Amino Transferase 19 U/L (5-37); Bilirubin Total 0.1 mg/dL (0.0-1.0); Blood Urea Nitrogen 10 mg/dL (9-16); Calcium 9.1 mg/dL (8.4-10.2); Carbon Dioxide 24 mmol/L (22-29); Chloride 109 mmol/L (96-108); Creatinine Clr Calc Pharmacy 143.4; Estimated Glomerular Filt Rate > 60; Glucose Random 111 mg/dL (60-115); Potassium 3.7 mmol/L (3.3-5.1); Sodium 138 mmol/L (135-145); Total Protein 6.4 g/dL (6.5-8.0)
[2024-01-30 08:00] VITALS: BP 129/90; PULSE 69; RESP 20; TEMP 36.4; O2SAT 99
[2024-01-30] MEDS: Thiamine HCL 100 MG TABLET PO (08:02)
[2024-01-30] MEDS: Folic Acid 1 MG TABLET PO (08:02)
[2024-01-30] MEDS: PHENobarbitaL 30 MG TABLET PO ×2 (08:02→19:53)
[2024-01-30] MEDS: 0.9 % Sodium Chloride Flush 3 ML SYRINGE IVFLUSH ×3 (08:03→23:37)
[2024-01-30] MEDS: LORazepam 2 MG/ML VIAL IVPUSH (08:07)
--- NOTE | 2024-01-30 12:00 | HO.PM.IMPN ---
Subjective Subjective Date of Service: 01/30/24 Interval History: c/o nausea, generalized malaise, craving for EtOH Review of Systems Review of Systems: Yes all other systems are reviewed and are negative Physical Exam Vital Signs: Vital Signs: Last Vital Signs Temp 97.6 F 01/30/24 08:00 Pulse 69 01/30/24 08:00 Resp 20 01/30/24 08:00 BP 129/90 H 01/30/24 08:00 Pulse Ox 99 01/30/24 08:00 O2 Del Method Room Air 01/30/24 08:00 BMI result Body Mass Index 41.0 Gen: in no acute distress HEENT: sclera anicteric, moist mucus membranes, healing tongue laceration Neck: supple Lungs: clear to auscultation bilaterally Heart: regular rate and rhythm, no murmurs Abd: soft, non-tender, non-distended, obese Ext: no edema Skin: warm/well-perfused Neuro: alert and oriented x3, no focal findings Psych: appropriate affect Objective Data Active Medications Acetaminophen (Acetaminophen 325 Mg Tablet) 650 mg PO Q6H PRN PRN Reason: Pain, Mild (Pain Scale 1-3), fever or headache Last Admin: 01/29/24 21:07 Dose: 650 mg Documented By: TIFFANIE Calcium Carbonate (Calcium Carbonate 750 Mg Tab.Chew) 750 mg PO Q4H PRN PRN Reason: Heartburn Last Admin: 01/30/24 03:18 Dose: 750 mg Documented By: TIFFANIE Folic Acid (Folic Acid 1 Mg Tablet) 1 mg PO DAILY [facility] Last Admin: 01/30/24 08:02 Dose: 1 mg Documented By: EMERY Lorazepam (Lorazepam 2 Mg/Ml Vial) 2 mg IVPUSH Q6H PRN PRN Reason: ciwa >12 Last Admin: 01/30/24 08:07 Dose: 2 mg Documented By: EMERY Magnesium Hydroxide (Milk Of Magnesia 30 Ml Oral.Susp) 30 ml PO DAILY PRN PRN Reason: Constipation Melatonin (Melatonin 3 Mg Tablet) 6 mg PO BEDTIME PRN PRN Reason: Insomnia Last Admin: 01/29/24 21:08 Dose: 6 mg Documented By: TIFFANIE Ondansetron HCl (Ondansetron Hcl 4 Mg/2 Ml Vial) 4 mg IVPUSH Q4H PRN PRN Reason: Nausea and Vomiting Pharmacy Consult (Consult Rx Etoh Phenob Im/Po) 1 each MISCELLANE ONCE PRN; Protocol PRN Reason: Consult order Phenobarbital (Phenobarbital 30 Mg Tablet) 30 mg PO BID [facility]; Protocol Stop: 01/31/24 09:01 Last Admin: 01/30/24 08:02 Dose: 30 mg Documented By: EMERY Phenobarbital (Phenobarbital 30 Mg Tablet) 30 mg PO DAILY [facility]; Protocol Stop: 02/02/24 09:01 Sodium Chloride (0.9 % Sodium Chloride Flush 3 Ml Syringe) 3 ml IVFLUSH QSHIFT [facility] Last Admin: 01/30/24 08:03 Dose: 3 ml Documented By: EMERY Thiamine HCl (Thiamine Hcl 100 Mg Tablet) 100 mg PO DAILY [facility] Last Admin: 01/30/24 08:02 Dose: 100 mg Documented By: EMERY Labs 01/30/24 05:57 01/30/24 05:57 Labs: Laboratory Results - last 24 hr 01/30/24 05:57 MCV 90.1 MCH 30.8 MCHC 34.1 RDW 12.2 Plt Count 288 MPV 10.0 Absolute Nucleated RBC 0.000 Nucleated RBC % (auto) 0.0 Anion Gap 9 L Estim Creat Clear Calc 143.4 Estimated GFR > 60 Random Glucose 111 Calcium 9.1 Total Bilirubin 0.1 AST 19 ALT 21 Alkaline Phosphatase 83 Total Creatine Kinase 445 H Total Protein 6.4 L Albumin 3.7 Assessment and Plan (1) Hypokalemia: Status: Acute (2) Rhabdomyolysis: Status: Acute (3) Alcohol withdrawal: Status: Acute (4) Alcoholism: Status: Acute Plan d4 43yo M admitted after witnessed EtOH withdrawal sz EtOH withdrawal sz - continue phenobarbital taper, continue thiamine/folic acid, Addiction Medicine consultation, possibly discharge to detox program mild rhabdomyolysis due to seizure - improved with IV fluids hypoK - repleted cocaine abuse - counseled; screen HBV/HCV/HIV morbid obesity - diet/exercise counseling VTE ppx - enoxaparin dispo - detox program In my clinical judgment, the patient requires continued inpatient hospitalization for the following reasons: inpt phenobarbital taper Total time managing care of this patient today: 35 minutes. Quality Stroke Does the patient have a stroke diagnosis?: No VTE Prior VTE?: No VTE Risk Level:: Medical - moderate - high VTE Device Contraindication: N/A - Device Ordered VTE Drug Contraindication: Treatment Not Indicated
--- NOTE | 2024-01-30 12:39 | MHC.RECOVRN ---
Spoke with Dolores ([email or web address]) regarding CSS placement. Reports there may be bed availability or Monday but needs to review updated progress note. Updated progress note sent to Dolores.
[2024-01-30 15:19] VITALS: BP 165/87; PULSE 95; RESP 17; TEMP 36.3; O2SAT 95
[2024-01-30 19:05] VITALS: BP 129/74; PULSE 98; RESP 18; TEMP 36.6; O2SAT 96
[2024-01-30] MEDS: Melatonin 3 MG TABLET 6 MG PO (20:32)
[2024-01-30 23:47] VITALS: BP 123/70; PULSE 77; RESP 20; TEMP 36.6; O2SAT 96
[2024-01-31 03:25] VITALS: BP 134/61; PULSE 85; RESP 20; TEMP 36.5; O2SAT 97
[2024-01-31 03:29] VITALS: BP 157/77; PULSE 85; RESP 20; TEMP 36.4; O2SAT 94
[2024-01-31 07:12] VITALS: BP 126/77; PULSE 76; RESP 18; TEMP 36.6; O2SAT 97
[2024-01-31] MEDS: Butalb/Acetamin/Caff 50/325/40 TABLET 1 TAB PO (07:54)
[2024-01-31] MEDS: Thiamine HCL 100 MG TABLET PO (07:54)
[2024-01-31] MEDS: Folic Acid 1 MG TABLET PO (07:55)
[2024-01-31] MEDS: PHENobarbitaL 30 MG TABLET PO (07:56)
[2024-01-31] MEDS: 0.9 % Sodium Chloride Flush 3 ML SYRINGE IVFLUSH (07:57)
[2024-01-31] MEDS: ondansetron HCL 4 MG/2 ML VIAL IVPUSH (07:58)
[2024-01-31 08:27] LABS: HBS Num1 > 1000.00 mIU/mL (0-7.99); HBsAGNum1 0.32 S/CO (0.00-0.99); HIV AB/AG Nonreactive (Nonreactive); HIV Num 1 0.04 S/CO (0.00-0.99); Hepatitis B Core Antibody Nonreactive (Nonreactive); Hepatitis B Surface Antigen Negative (Negative); ~HepC Num1 0.15 S/CO (0.00-0.79); ~Hepatitis B Surface Antibody REACTIVE (Nonreactive); ~Hepatitis C Antibody Nonreactive (Nonreactive)
--- NOTE | 2024-01-31 10:05 | MHC.RECOVRN ---
Received message from Dolores [facility] that pt. has been accepted for a phone screen today at 11AM. T/W gave information along with contact number [phone] for pt to call for intake, to care team [facility]. [facility] will forward information to pt. Will F/U after call.
--- NOTE | 2024-01-31 11:16 | HO.PM.IMPN ---
Subjective Subjective Date of Service: 01/31/24 Interval History: c/o DASILVA craving EtOH Review of Systems Review of Systems: Yes all other systems are reviewed and are negative Physical Exam Vital Signs: Vital Signs: Last Vital Signs Temp 97.9 F 01/31/24 07:12 Pulse 76 01/31/24 07:12 Resp 18 01/31/24 07:12 BP 126/77 01/31/24 07:12 Pulse Ox 97 01/31/24 07:12 O2 Del Method Room Air 01/31/24 07:12 BMI result Body Mass Index 41.0 Gen: in no acute distress HEENT: sclera anicteric, moist mucus membranes Neck: supple Lungs: clear to auscultation bilaterally Heart: regular rate and rhythm, no murmurs Abd: soft, non-tender, non-distended, obese Ext: no edema Skin: warm/well-perfused Neuro: alert and oriented x3, no focal findings Psych: appropriate affect Objective Data Active Medications Acetaminophen (Acetaminophen 325 Mg Tablet) 650 mg PO Q6H PRN PRN Reason: Pain, Mild (Pain Scale 1-3), fever or headache Last Admin: 01/29/24 21:07 Dose: 650 mg Documented By: TIFFANIE Calcium Carbonate (Calcium Carbonate 750 Mg Tab.Chew) 750 mg PO Q4H PRN PRN Reason: Heartburn Last Admin: 01/30/24 19:53 Dose: 750 mg Documented By: EMERY Folic Acid (Folic Acid 1 Mg Tablet) 1 mg PO DAILY [facility] Last Admin: 01/31/24 07:55 Dose: 1 mg Documented By: FERNANDO Lorazepam (Lorazepam 2 Mg/Ml Vial) 2 mg IVPUSH Q6H PRN PRN Reason: ciwa >12 Last Admin: 01/30/24 08:07 Dose: 2 mg Documented By: EMERY Magnesium Hydroxide (Milk Of Magnesia 30 Ml Oral.Susp) 30 ml PO DAILY PRN PRN Reason: Constipation Melatonin (Melatonin 3 Mg Tablet) 6 mg PO BEDTIME PRN PRN Reason: Insomnia Last Admin: 01/30/24 20:32 Dose: 6 mg Documented By: EMERY Ondansetron HCl (Ondansetron Hcl 4 Mg/2 Ml Vial) 4 mg IVPUSH Q4H PRN PRN Reason: Nausea and Vomiting Last Admin: 01/31/24 07:58 Dose: 4 mg Documented By: FERNANDO Pharmacy Consult (Consult Rx Etoh Phenob Im/Po) 1 each MISCELLANE ONCE PRN; Protocol PRN Reason: Consult order Phenobarbital (Phenobarbital 30 Mg Tablet) 30 mg PO DAILY [facility]; Protocol Stop: 02/02/24 09:01 Sodium Chloride (0.9 % Sodium Chloride Flush 3 Ml Syringe) 3 ml IVFLUSH QSHIFT [facility] Last Admin: 01/31/24 07:57 Dose: 3 ml Documented By: FERNANDO Thiamine HCl (Thiamine Hcl 100 Mg Tablet) 100 mg PO DAILY [facility] Last Admin: 01/31/24 07:54 Dose: 100 mg Documented By: FERNANDO Labs 01/30/24 05:57 01/30/24 05:57 Labs: Laboratory Results - last 24 hr 01/31/24 05:48 Hep Bs Antigen Negative Hep Bs Antibody REACTIVE Hep B Core Total Ab Nonreactive Hepatitis C Ab (EIA) Nonreactive HIV 1&2 Ab/P24 Ag 4thGn Nonreactive Assessment and Plan (1) Hypokalemia: Status: Acute (2) Rhabdomyolysis: Status: Acute (3) Alcohol withdrawal: Status: Acute (4) Alcoholism: Status: Acute Plan d5 43yo M admitted after witnessed EtOH withdrawal sz EtOH withdrawal sz - continue phenobarbital taper, continue thiamine/folic acid, Addiction Medicine consultation, awaiting discharge to [facility] mild rhabdomyolysis due to seizure - improved with IV fluids hypoK - repleted cocaine abuse - counseled; HBV immune, HCV neg, HIV neg morbid obesity - diet/exercise counseling VTE ppx - enoxaparin dispo - [facility] In my clinical judgment, the patient requires continued inpatient hospitalization for the following reasons: placement Total time managing care of this patient today: 35 minutes. Quality Stroke Does the patient have a stroke diagnosis?: No VTE Prior VTE?: No VTE Risk Level:: Medical - moderate - high VTE Device Contraindication: N/A - Device Ordered VTE Drug Contraindication: Treatment Not Indicated
--- NOTE | 2024-01-31 11:25 | P.DS_ITS ---
DS: Providers Provider Date of Service: 01/31/24 Date of admission: 01/27/24 11:57 Date of discharge: 01/31/24 Primary care physician: None Physician Consults: 01/27/24 05:37 Consult to Care Team Stat Comment: Reason for consultation: alcohol dependency 01/27/24 12:08 Addiction Medicine Routine Consulting Provider: Addiction Covering Reason for consultation: etoh/cocaine use disorder Has provider been notified: No DS: Diagnosis Discharge Diagnosis (1) Hypokalemia: Status: Acute (2) Rhabdomyolysis: Status: Acute (3) Alcohol withdrawal: Status: Acute (4) Alcoholism: Status: Acute (5) Alcohol withdrawal seizure: Status: Acute (6) Cocaine abuse: Status: Acute (7) Morbid obesity: Status: Acute DS: Summary Hospital Course Hospital Course: From the history and physical by the admitting hospitalist, Neto Molina, 01/27/24: 43-year-old gentleman with no significant past medical history was brought in to [facility] after suspected seizure, as per patient he has been drinking every day since July mostly beer , stop drinking 2 days ago, was waiting for detox bed in [place], pile driver was on the way to get him, he came out of shower was pulling up his pants, felt dizzy and fell to the ground ,he remembers this happened around 3:30 in the afternoon ,later ex-girlfriend came up to check on him several hours later but found him on the floor shaking, he complained of tongue pain, in the emergency room had no further seizure episodes but noted to have elevated CIWA up to 21 treated with phenobarb protocol and now being admitted to [facility] for alcohol withdrawal seizures, patient admits to snorting cocaine few times a week, denies IV drug use, denies prior history of alcohol withdrawal seizures is motivated to undergo detox. 43yo M admitted after witnessed EtOH withdrawal sz. He was treated with phenobarbital taper, thiamine, and folic acid. He had mild rhabdomyoylsis likely due the seizure; this improved with IV fluids. Hypokalemia was repleted. He was counseled against cocaine abuse; found to be HBV-immune, HCV-negative, and HIV-negative. He was discharged to [facility] program. Time Attestation Discharge Coordination Time (in mins): 35 Quality: Safe Use of Opioids Does Pt have an Active Cancer Diagnosis on the Problem List?: No Quality: Stroke Does the patient have a stroke diagnosis?: No Physical Exam Vital Signs: Vital Signs: Last Vital Signs Temp 97.9 F 01/31/24 07:12 Pulse 76 01/31/24 07:12 Resp 18 01/31/24 07:12 BP 126/77 01/31/24 07:12 Pulse Ox 97 01/31/24 07:12 O2 Del Method Room Air 01/31/24 07:12 BMI result Body Mass Index 41.0 Gen: in no acute distress HEENT: sclera anicteric, moist mucus membranes Neck: supple Lungs: clear to auscultation bilaterally Heart: regular rate and rhythm, no murmurs Abd: soft, non-tender, non-distended, obese Ext: no edema Skin: warm/well-perfused Neuro: alert and oriented x3, no focal findings Psych: appropriate affect DS: Data Data Completed and Pending Completed studies during hospitalization [Text1]: Laboratory Results WBC 8.8 X10*3/uL (4.8-10.8) 01/30/24 05:57 RBC 4.65 X10*6/uL (4.60-5.80) 01/30/24 05:57 Hgb 14.3 g/dl (14.0-18.0) 01/30/24 05:57 Hct 41.9 % (42.0-52.0) L 01/30/24 05:57 MCV 90.1 fL (80.0-98.0) 01/30/24 05:57 MCH 30.8 pg (27.0-33.0) 01/30/24 05:57 MCHC 34.1 g/dl (31.0-36.0) 01/30/24 05:57 RDW 12.2 % (11.0-16.0) 01/30/24 05:57 Plt Count 288 X10*3/uL (160-400) 01/30/24 05:57 MPV 10.0 fL (9.4-12.4) 01/30/24 05:57 Immature Gran % (Auto) 1.0 % (0.0-0.4) H 01/26/24 20:32 Neut % (Auto) 62.5 % (45-73) 01/26/24 20:32 Lymph % (Auto) 22.7 % (20-40) 01/26/24 20:32 [place] % (Auto) 13.1 % (2-11) H 01/26/24 20:32 Eos % (Auto) 0.1 % (0-4) 01/26/24 20:32 Baso % (Auto) 0.6 % (0-2) 01/26/24 20:32 Lymph # (Auto) 2.9 X10*3/uL (1.2-4.9) 01/26/24 20:32 [place] # (Auto) 1.6 X10*3/uL (0.1-1.2) H 01/26/24 20:32 Eos # (Auto) 0.0 X10*3/uL (0.0-0.4) 01/26/24 20:32 Baso # (Auto) 0.1 X10*3/uL (0.0-0.2) 01/26/24 20:32 Abs Immat Gran (auto) 0.13 X10*3/uL (0.00-0.03) H 01/26/24 20:32 Absolute Neuts (auto) 7.9 x10*3/uL (2.0-8.3) 01/26/24 20:32 Absolute Nucleated RBC 0.000 X10*3/uL (0.0-0.012) 01/30/24 05:57 Nucleated RBC % (auto) 0.0 /100WBC (0.0-0.2) 01/30/24 05:57 Smear Tech's Comments VERIFIED 01/26/24 20:32 Sodium 138 mmol/L (135-145) 01/30/24 05:57 Potassium 3.7 mmol/L (3.3-5.1) 01/30/24 05:57 Chloride 109 mmol/L (96-108) H 01/30/24 05:57 Carbon Dioxide 24 mmol/L (22-29) 01/30/24 05:57 Anion Gap 9 (12-20) L 01/30/24 05:57 BUN 10 mg/dL (9-16) 01/30/24 05:57 Creatinine 0.80 mg/dL (0.5-1.4) 01/30/24 05:57 Estim Creat Clear Calc 143.4 01/30/24 05:57 Estimated GFR > 60 01/30/24 05:57 Random Glucose 111 mg/dL (60-115) 01/30/24 05:57 Calcium 9.1 mg/dL (8.4-10.2) 01/30/24 05:57 Magnesium 2.2 mg/dL (1.6-2.6) 01/28/24 05:30 Total Bilirubin 0.1 mg/dL (0.0-1.0) 01/30/24 05:57 AST 19 U/L (5-37) 01/30/24 05:57 ALT 21 U/L (0-40) 01/30/24 05:57 Alkaline Phosphatase 83 U/L (39-117) 01/30/24 05:57 Total Creatine Kinase 445 U/L (38-174) H 01/30/24 05:57 Total Protein 6.4 g/dL (6.5-8.0) L 01/30/24 05:57 Albumin 3.7 g/dL (3.5-5.0) 01/30/24 05:57 Lipase 15 U/L (8-78) 01/26/24 20:32 Urine Color Yellow 01/27/24 00:47 Urine Appearance Clear 01/27/24 00:47 Urine pH 5.5 (5.0-9.0) 01/27/24 00:47 Ur Specific [place] >= 1.030 (1.005-1.025) H 01/27/24 00:47 Urine Protein 30 (1+) mg/dL (Neg-Trace) H 01/27/24 00:47 Urine Glucose (UA) Negative mg/dL (Negative) 01/27/24 00:47 Urine Ketones 15 mg/dL (Negative) 01/27/24 00:47 Urine Blood Trace (Negative) H 01/27/24 00:47 Urine Nitrite Negative (Negative) 01/27/24 00:47 Ur Leukocyte Esterase Negative (Negative) 01/27/24 00:47 Urine RBC 0-2 /HPF (0-2) 01/27/24 00:47 Urine WBC 0-5 /HPF (0-5) 01/27/24 00:47 Ur Squamous Epith Cells 0-2 /HPF (0-2) 01/27/24 00:47 Urine Bacteria None Seen (None Seen) 01/27/24 00:47 Hyaline Casts 3-5 /LPF (0-2) 01/27/24 00:47 Urine Opiates Screen Not Detected (Not Detect) 01/27/24 00:47 Ur Buprenorphine Scrn Not Detected ng/mL (Not Detect) 01/27/24 00:47 Ur Oxycodone Screen Not Detected ng/mL (Not Detect) 01/27/24 00:47 Urine Methadone Screen Not Detected ng/mL (Not Detect) 01/27/24 00:47 Urine Fentanyl Screen Not Detected (Not Detect) 01/27/24 00:47 Ur Barbiturates Screen Not Detected (Not Detect) 01/27/24 00:47 Ur Phencyclidine Scrn Not Detected (Not Detect) 01/27/24 00:47 Ur Amphetamines Screen Not Detected (Not Detect) 01/27/24 00:47 U Benzodiazepines Scrn Not Detected (Not Detect) 01/27/24 00:47 Urine Cocaine Screen POSITIVE (Not Detect) H 01/27/24 00:47 U Marijuana (THC) Screen POSITIVE (Not Detect) H 01/27/24 00:47 Ethyl Alcohol < 10 mg/dL 01/26/24 20:32 Hep Bs Antigen Negative (Negative) 01/31/24 05:48 Hep Bs Antibody REACTIVE (Nonreactive) 01/31/24 05:48 Hep B Core Total Ab Nonreactive (Nonreactive) 01/31/24 05:48 Hepatitis C Ab (EIA) Nonreactive (Nonreactive) 01/31/24 05:48 HIV 1&2 Ab/P24 Ag 4thGn Nonreactive (Nonreactive) 01/31/24 05:[address] 01/26/24 20:26 IMPRESSION: 1. No evidence of acute intracranial hemorrhage or edematous territorial infarction. 2. No evidence of acute fracture or traumatic subluxation of the cervical spine. 3. Small posterior scalp hematoma. No associated osseous abnormalities. Electronically signed by: Jeremias Maldonado DO 01/26/2024 09:49 PM EDT Cervical Spine CT 01/26/24 21:00 IMPRESSION: 1. No evidence of acute intracranial hemorrhage or edematous territorial infarction. 2. No evidence of acute fracture or traumatic subluxation of the cervical spine. 3. Small posterior scalp hematoma. No associated osseous abnormalities. Electronically signed by: Jeremias Maldonado DO 01/26/2024 09:49 PM EDT RP Discharge Plan Discharge Anticipated Discharge Date/Time: 01/31/24 11:23 Patient Disposition: Xfer SNF Discharge Diagnosis: alcohol withdrawal seizure alcohol use disorder rhabdomyolysis cocaine abuse Referrals: Physician,None [Primary Care Provider] - 1 Week Discharge Medications: New folic acid 1 mg Tablet 1 mg PO DAILY Qty: 30 0RF thiamine mononitrate (vit B1) 100 mg Tablet 100 mg PO DAILY Qty: 30 0RF Continued ibuprofen 200 mg Tablet 400 mg PO Q8H PRN (Reason: Pain) Discharge Orders: Discharge Order (Routine); Ordered 01/31/24 Ordered By: Carley Pierre Diet: Advance to usual diet Activity on Discharge: As tolerated Stand Alone Forms: Patient Portal Discharge page Print Language: Cypriot Care Plan Goals: sobriety Health Concerns: alcohol withdrawal seizure alcohol use disorder rhabdomyolysis cocaine abuse Plan of Treatment: transfer to [facility] maintain sobriety avoid cocaine take folic acid and thiamine establish primary care as soon as possible Assessment: See Discharge Summary.
[2024-01-31 11:29] VITALS: BP 156/83; PULSE 78; RESP 20; TEMP 36.4; O2SAT 99
--- NOTE | 2024-01-31 12:26 | MHC.CM.PN ---
Patient is discharged today. The Recovery team set up Admission to [facility], [address] [place] [address]. The patient will transport with his manager of disaster recovery at 1:45pm.
--- NOTE | 2024-01-31 12:30 | MHC.RECOVRN ---
Pt has been accepted to [facility] for treatment following D/C from floor. D/C coordinated with GUERO Girard and nurse Mary and pt will be transported to [facility] via oil recovery unit operator at 1:45PM. Message sent to MADHAVI Hernandez that [facility] is pharmacy of choice for facility.
== END 2024-01-31 13:52 | disposition skilled nursing facility (03) | DRG 774 ==
LOC: HO.ED 01-27 09:59 → HO.EDOVER 01-27 12:09 → HO.IMC 01-27 12:20
PROVIDERS: Physician Assistant Medical; Admitting Provider Hospitalist; Emergency Provider Emergency Medicine; Visit Provider Family Medicine
DX: F10.239 Alcohol dependence with withdrawal, unspecified (principal); F14.10 Cocaine abuse, uncomplicated; M62.82 Rhabdomyolysis; R56.9 Unspecified convulsions; E66.01 Morbid (severe) obesity due to excess calories; E87.6 Hypokalemia; F17.210 Nicotine dependence, cigarettes, uncomplicated; Z71.6 Tobacco abuse counseling; Z68.41 Body mass index [BMI] 40.0-44.9, adult
CPT/HCPCS: 36415; 70450; 72125; 80048; 80053; 80307; 81001; 82550; 83690; 83735; 85025; 85027; 86704; 86706; 86803; 87340; 87389; 93005; 96372; 99285; J2060; J2405; J2560; J3480

== ENCOUNTER → 2024-01-27 11:57 | Outpatient (BNV) | payer MEDICAID, SELFPAY | PROVIDERS: Admitting Provider Hospitalist; Emergency Provider Emergency Medicine; Visit Provider Hospitalist | DX: E87.6 Hypokalemia (principal); M62.82 Rhabdomyolysis; F10.939 Alcohol use, unspecified with withdrawal, unspecified | CPT/HCPCS: 99223; 99232; 99239; 99499 ==